=== PATIENT | female | born 1940 | race Caucasian/White ===

== ENCOUNTER 2019-05-11 09:34 | Day surgery (SDC) | payer MEDICARE, BC ==
[~2019-05-11] VITALS: Ht 167.6 cm; Wt 46.4 kg
[~2019-05-11 09:34] MED LIST: ASCORBIC ACID500 MG PO; CALCIUM 600+D T1 TA1 PO; CATAPRES0.1 MG; FLUARIX; GABAPENTIN100 MG; GEMFIBROZIL600 MG PO; LOPRESSOR25 MG PO; LOTREL 5/10 MG1 CAP PO; MIRALAX17 GM PO; PRAVACHOL40 MG PO; PROTONIX40 MG PO; STOOL SOFTENER100 M1 PO; SYNTHROID50 MCG PO; TOPROL XL50 MG PO; VITAMIN D3400 UNI1 PO; ZANAFLEX4 MG PO
[2019-05-11 09:51] LABS: BASOPHILS 0.7 % (0-2); EOSINOPHILS 2.1 % (0-7); HEMATOCRIT 41.8 % (36.0-48.0); IMMATURE GRANULOCYTES 0.2 % (0-5); LYMPHOCYTES 20.9 % (15-50); MCH 30.3 pg (26.0-34.0); MCHC 33.5 g/dL (31.0-37.0); MCV 90.5 fL (80.0-100.0); MONOCYTES 8.1 % (2-11); PLATELET COUNT 280 10x3/uL (130-400); RBC 4.62 10x6/uL (4.00-5.40); RDW 12.9 % (11.5-14.5); WBC 6.1 10x3/uL (4.8-10.8)
[2019-05-11 10:02] LABS: ANION GAP 9.4 mmol/L (8-16); CALCIUM 9.5 mg/dL (8.5-10.1); CARBON DIOXIDE 31.2 mmol/L (21.0-32.0); CREATININE - SERUM 1.3 mg/dL (0.6-1.3); POTASSIUM - SERUM 4.6 mmol/L (3.5-5.1)
[2019-05-11 10:04] LABS: INR 1.06 (0.85-1.17); PROTIME 13.3 SECONDS (11.6-15.0)
[2019-05-11 10:05] LABS: APTT 28.9 SECONDS (22.8-39.4)
[2019-05-11 10:58] VITALS: BP 131/64; Ht 167.6 cm; Wt 46.4 kg
--- NOTE | 2019-05-11 12:33 | NUR ---
IV DC'D WITH TIP INTACT. DISCHARGE INSTRUCTIONS PROVIDED, [facility] CALLED INTO [facility] [address].
--- NOTE | 2019-05-11 15:59 | OP ---
PATIENT NAME: JYOTI SINGH MEDICAL RECORD: [id number] :38 LOCATION:[facility] ADMISSION DATE: SURGEON: SIXTO NGO DO DATE OF OPERATION: 05/11/2019 PROCEDURE: EGD with biopsies. INDICATIONS FOR PROCEDURE: Epigastric pain, heartburn, nausea, abnormal weight loss. SCOPE: Olympus video gastroscope. MEDICATIONS: Propofol 50 mg IV per anesthesia. ESTIMATED BLOOD LOSS: Minimal. COMPLICATIONS: None. FINDINGS: Informed consent was given. The patient was made comfortable with the above medication. After reaching an adequate level of sedation by slow IV push, the patient was placed on her left side. The endoscope was advanced under direct visualization through the mouth to the second portion of the duodenum with ease. The entire esophagus appeared normal. Random cold forceps biopsies were taken from the midesophagus to submit for histopathology. At the GE junction, there were minor changes consistent with LA class A reflux-induced esophagitis. No ulcers were seen. The endoscope was advanced beyond the GE junction into the stomach and retroflexed to view the cardia, where a small sliding hiatal hernia was present. The fundus and body of the stomach appeared normal. As the endoscope advanced into the antrum and prepyloric region, there were scattered erosions as well as erythema and granularity consistent with gastritis. Random cold forceps biopsies were taken to submit for histopathology and to rule out the presence of H. pylori. The endoscope was advanced beyond the pylorus into the duodenum, which appeared normal to the second portion. The endoscope was then withdrawn from the patient. The patient tolerated the procedure well and there were no complications. IMPRESSION: 1. LA class A reflux-induced esophagitis. 2. Small sliding hiatal hernia. 3. Gastritis. PLAN AND RECOMMENDATIONS: 1. Discharge home when recovery parameters are met. 2. Follow up biopsy specimen results. 3. GERD diet and reflux precautions. 4. Continue current medications. 5. Recommend the patient to take her pantoprazole 40 mg daily, scheduled times 60 days. 6. Follow up in GI clinic in 4-6 weeks to review symptoms and see if further workup needs to be undertaken. 7. If dysphagia continues, consider barium esophagram and/or manometry study. 8. If continued abdominal pain, consider adding trial of Carafate suspension or tablet to regimen. TRANSINT:[id number] Voice Confirmation ID: [id number] DOCUMENT ID: [id number] OPERATIVE REPORT [id number] JYOTI SINGH,SIXTO Mejia DO at 1559 CC: [id number] DICTATION DATE: 05/11/19 1138 Z [employer] PROGRAMMER: 05/11/19 1241 [facility] 05/11/19 [place] [id number] [place] [id number]
== END 2019-05-11 12:45 | disposition home or self-care (01) ==
LOC: D.OPS 09:34
PROVIDERS: Anesthesiology; ATTEND Internal Medicine Gastroenterology
DX: K21.0 Gastro-esophageal reflux disease with esophagitis (principal); R10.13 Epigastric pain; R12 Heartburn; R63.4 Abnormal weight loss; K29.70 Gastritis, unspecified, without bleeding; K44.9 Diaphragmatic hernia without obstruction or gangrene

== ENCOUNTER 2020-02-17 06:30 | Day surgery (SDC) | payer MEDICARE, BC ==
[2020-02-15 13:11] LABS: ANION GAP 12.9 mmol/L (8-16); CALCIUM 9.5 mg/dL (8.5-10.1); CARBON DIOXIDE 26.5 mmol/L (21.0-32.0); CREATININE - SERUM 1.7 mg/dL (0.6-1.3); POTASSIUM - SERUM 4.4 mmol/L (3.5-5.1)
--- NOTE | 2020-02-15 13:13 | NUR ---
DICK: [id number]% P68 R 20 BP 189/74 T98.0 PATIENT DENIES ANY DIZZINESS, CHEST PAIN OR OTHER SYMPTOMS. STATES "MY BP GETS HIGH WHEN i'M NERVOUS".
[2020-02-15 13:36] LABS: BASOPHILS 0.7 % (0-2); EOSINOPHILS 2.7 % (0-7); HEMATOCRIT 43.6 % (36.0-48.0); IMMATURE GRANULOCYTES 0.2 % (0-5); LYMPHOCYTES 28.9 % (15-50); MCHC 32.1 g/dL (31.0-37.0); MCV 90.5 fL (80.0-100.0); MEAN PLATELET VOLUME 10.2 fL (7.4-10.4); MONOCYTES 9.4 % (2-11); NEUTROPHILS 58.1 % (40-80); PLATELET COUNT 260 10x3/uL (130-400); RBC 4.82 10x6/uL (4.00-5.40); RDW 13.3 % (11.5-14.5); WBC 5.5 10x3/uL (4.8-10.8)
[~2020-02-17] VITALS: Ht 167.6 cm; Wt 45.8 kg
--- NOTE | ~2020-02-17 | OP ---
PATIENT NAME: JYOTI SINGH MEDICAL RECORD: [id number] :38 LOCATION:[facility] ADMISSION DATE: SURGEON: LESLI FOWLER DO DATE OF OPERATION: 02/17/2020 PREOPERATIVE DIAGNOSES: Vulvar mass and pain. POSTOPERATIVE DIAGNOSES: Vulvar mass and pain. PRIMARY SURGEON: Lesli Fowler DO ANESTHESIA: General ET tube. PROCEDURE: Vulvar biopsies, left outer labia minora, left inner labia minora, right labia majora, midline perineum. FINDINGS: Atrophic vagina discoloration in a syzked-qt-sdsel pattern around the vulva and rectum, 0.5 mm lesion on the left external labia minora, darken skin on the left internal labia minora, and 0.3 mm lesion on the right labia majora. SPECIMENS: Vulvar biopsies. ESTIMATED BLOOD LOSS: 5 cc. IV FLUIDS: 300 cc. COMPLICATIONS: None. CONDITION: Stable. DESCRIPTION OF PROCEDURE: The risks, benefits, alternatives and indications of the procedure were discussed with the patient. She voiced understanding of the procedure and signed the consent. She was taken to the OR where general anesthesia was administered and found to be adequate. She was placed in the dorsal lithotomy position. She was prepped and draped in the normal sterile fashion. The above findings were noted and vulvar biopsies were taken at each site with a 0.5 mm Alexandre punch biopsy and sent to pathology. The Mcneil punch biopsy was used to collect the biopsies and sent to pathology. The vulvar biopsy sites were closed with 4-0 Monocryl suture with good hemostasis noted. All needle, lap, sponge, and instrument counts were correct times 2. The patient tolerated the procedure well and she was awakened and taken to the recovery room in stable condition. TRANSINT:[id number] Voice Confirmation ID: [id number] DOCUMENT ID: [id number] LESLI FOWLER DO CC: [id number] DICTATION DATE: 02/17/20 1314 DRILLER HAND: 02/17/20 1439 [facility] 02/17/20 [facility] [address] [place] [id number]
[~2020-02-17 06:30] MED LIST changes: +CELEXA10 MG PO; -LOPRESSOR25 MG PO; +METOPROLOL TART25 MG PO; +NORVASC2.5 MG PO; +ULTRAM50 MG PO
[2020-02-17 07:01] VITALS: Ht 167.6 cm; Wt 45.8 kg
--- NOTE | 2020-02-17 10:08 | NUR ---
1000-RECD TO ROOM FROM PACU. ALERT. IV PATENT. STATES SOME ACHY PAIN, NOT BAD. RESP WITH EASE.
--- NOTE | 2020-02-17 13:37 | NUR ---
1050 MEDICATED FOR PAIN. 1130 IV REMOVED AND PRESSURE HELD. 1140 D/C HOME
== END 2020-02-17 11:40 | disposition home or self-care (01) ==
LOC: D.OPS 06:30 → D.PAN 07:00 → D.OPS 07:00
PROVIDERS: Anesthesiology; ATTEND Student in an Organized Health Care Education/Training Program
DX: N90.89 Other specified noninflammatory disorders of vulva and perineum (principal)